=== PATIENT | female | born 1995 ===

== ENCOUNTER → 2020-05-27 | Outpatient (CLI) | payer OTHER | END | disposition home or self-care (01) | LOC: PRENATAL 10:30 | PROVIDERS: ATTEND Obstetrics & Gynecology Maternal & Fetal Medicine | DX: O10.012 Pre-existing essential hypertension complicating pregnancy, second trimester (principal); O99.891 Other specified diseases and conditions complicating pregnancy; O36.80X1 Pregnancy with inconclusive fetal viability, fetus 1; Z36.89 Encounter for other specified antenatal screening; Z3A.15 15 weeks gestation of pregnancy ==

== ENCOUNTER 2020-06-17 19:49 | Emergency (ER) | payer OTHER ==
[~2020-06-17] VITALS: Ht 160 cm; Wt 67.1 kg
[2020-06-17] MEDS ORDERED: PRENATAL + DHA1 EAC1 (20:02)
[2020-06-17] MEDS ORDERED: LABETALOL HCL100 MG (20:03)
[2020-06-17] MEDS ORDERED: ACETAMINOPHEN650 M2 PO (21:17)
[2020-06-17] MEDS ORDERED: NAPROXEN250 MG PO (21:17)
[2020-06-17] MEDS ORDERED: NORFLEX100MG PO (21:17)
== END 2020-06-17 22:06 | disposition home or self-care (01) ==
LOC: ER 19:49
DX: M62.838 Other muscle spasm (principal); M54.2 Cervicalgia

== ENCOUNTER → 2020-07-01 | Outpatient (CLI) | payer OTHER ==
[~2020-07-01] MED LIST: ACETAMINOPHEN650 M2 PO; LABETALOL HCL100 MG; NAPROXEN250 MG PO; NORFLEX100MG PO; PRENATAL + DHA1 EAC1
== END | disposition home or self-care (01) ==
LOC: PRENATAL 13:00
PROVIDERS: ATTEND Obstetrics & Gynecology Maternal & Fetal Medicine
DX: O35.0XX1 Maternal care for (suspected) central nervous system malformation in fetus, fetus 1 (principal); O35.3XX1 Maternal care for (suspected) damage to fetus from viral disease in mother, fetus 1; O98.512 Other viral diseases complicating pregnancy, second trimester; O10.012 Pre-existing essential hypertension complicating pregnancy, second trimester; O99.891 Other specified diseases and conditions complicating pregnancy; Z36.89 Encounter for other specified antenatal screening; Z3A.19 19 weeks gestation of pregnancy

== ENCOUNTER 2020-07-14 08:59 | Emergency (ER) | payer OTHER ==
[~2020-07-14] VITALS: Ht 160 cm; Wt 66.7 kg
[2020-07-14] MEDS ORDERED: CYCLOBENZAPRINE10 MG PO (10:40)
[2020-07-14] MEDS ORDERED: DOLOGESIC 500-1 EACH PO (10:40)
== END 2020-07-14 10:58 | disposition home or self-care (01) ==
LOC: ER 08:59
DX: O26.892 Other specified pregnancy related conditions, second trimester (principal); R07.89 Other chest pain; M94.0 Chondrocostal junction syndrome [Tietze]; Z34.02 Encounter for supervision of normal first pregnancy, second trimester

== ENCOUNTER → 2020-08-24 | Outpatient (CLI) | payer OTHER ==
[~2020-08-24] MED LIST changes: +CYCLOBENZAPRINE10 MG PO; +DOLOGESIC 500-1 EACH PO
== END | disposition home or self-care (01) ==
LOC: PRENATAL 10:28
PROVIDERS: ATTEND Obstetrics & Gynecology Maternal & Fetal Medicine
DX: O26.842 Uterine size-date discrepancy, second trimester (principal); O10.012 Pre-existing essential hypertension complicating pregnancy, second trimester; O99.891 Other specified diseases and conditions complicating pregnancy; Z36.89 Encounter for other specified antenatal screening; Z3A.27 27 weeks gestation of pregnancy

== ENCOUNTER 2020-09-09 17:58 | Outpatient (CLI) | payer OTHER | END 2020-09-10 09:15 | disposition home or self-care (01) | LOC: OBS/DEL 17:58 | PROVIDERS: ATTEND Specialist | DX: O26.893 Other specified pregnancy related conditions, third trimester (principal); N20.0 Calculus of kidney; Z3A.29 29 weeks gestation of pregnancy ==

== ENCOUNTER 2020-09-29 09:33 | Outpatient (CLI) | payer OTHER | END 2020-09-29 10:30 | disposition home or self-care (01) | LOC: PRENATAL 09:33 | PROVIDERS: ATTEND Obstetrics & Gynecology Maternal & Fetal Medicine | DX: O10.013 Pre-existing essential hypertension complicating pregnancy, third trimester (principal); O26.843 Uterine size-date discrepancy, third trimester; O99.891 Other specified diseases and conditions complicating pregnancy; Z36.89 Encounter for other specified antenatal screening; Z3A.32 32 weeks gestation of pregnancy ==

== ENCOUNTER 2020-10-27 14:45 | Inpatient (IN) | payer OTHER ==
[~2020-10-27] VITALS: Ht 160 cm; Wt 3.2 kg
[2020-11-26] MEDS ORDERED: LABETALOL HCL200 MG PO (07:47)
[2020-11-26] MEDS ORDERED: IBUPROFEN800 MG PO (07:47)
== END 2020-11-26 13:15 | disposition home or self-care (01) | DRG 788 ==
LOC: OB/GYN 11-20 14:45 → LDR 11-23 03:16 → OB/GYN 11-23 03:16
PROVIDERS: ADMIT Specialist; ATTEND Specialist
PROC: 4A1HXFZ Monitoring of Products of Conception, Cardiac Rhythm, External Approach (ICD-10-PCS; 2020-11-23)
PROC: 10D00Z1 Extraction of Products of Conception, Low, Open Approach (ICD-10-PCS; principal; 2020-11-23 07:00)
DX: O10.02 Pre-existing essential hypertension complicating childbirth (principal); O82 Encounter for cesarean delivery without indication; Z53.29 Procedure and treatment not carried out because of patient's decision for other reasons; O99.824 Streptococcus B carrier state complicating childbirth; Z3A.40 40 weeks gestation of pregnancy; Z37.0 Single live birth

== ENCOUNTER 2022-02-04 03:47 | Emergency (ER) | payer OTHER ==
[~2022-02-04] VITALS: Ht 160 cm; Wt 65.3 kg
[~2022-02-04 03:47] MED LIST changes: +IBUPROFEN800 MG PO; +LABETALOL HCL200 MG PO
== END 2022-02-04 13:04 | disposition home or self-care (01) ==
LOC: ER 03:47
DX: O20.9 Hemorrhage in early pregnancy, unspecified (principal); Z3A.22 22 weeks gestation of pregnancy